=== PATIENT | male | born 2000 | race African-American/Black ===

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

== ENCOUNTER 2019-07-29 20:31 | Emergency (ER) | payer MEDICAID ==
[~2019-07-29] VITALS: Ht 172.7 cm; Wt 104.5 kg
[2019-07-29] MEDS ORDERED: LIDOCAINE 1% 10 ML VIAL INJ ONE (21:00)
[2019-07-29] MEDS ORDERED: POVIDONE-IODINE 10% 15 ML SOLUTION UD TP ONE (21:00)
[2019-07-29] MEDS ORDERED: ACETAMINOPHEN 500 MG TABLET PO ONE (22:00)
[2019-07-29 22:18] VITALS: BP 130/78
== END 2019-07-29 22:15 | disposition home or self-care (01) ==
LOC: EMS 20:32
DX: L05.01 Pilonidal cyst with abscess (principal)
CPT/HCPCS: 10080; 99284; J3490; 10060

== ENCOUNTER 2019-08-01 18:51 | Emergency (ER) | payer MEDICAID ==
[~2019-08-01] VITALS: Ht 175.3 cm; Wt 106.8 kg
[2019-08-01] MEDS ORDERED: [UNRECOGNIZED DRUG - REMARK] PO (19:05)
[2019-08-01 20:33] VITALS: BP 116/70
== END 2019-08-01 20:34 | disposition home or self-care (01) ==
LOC: EMS 18:54
DX: Z48.00 Encounter for change or removal of nonsurgical wound dressing (principal)

== ENCOUNTER 2020-10-01 11:15 | Emergency (ER) | payer MEDICAID ==
[~2020-10-01] VITALS: Ht 170.2 cm; Wt 107.7 kg
[~2020-10-01 11:15] MED LIST: [UNRECOGNIZED DRUG - REMARK] PO
[2020-10-01] MEDS ORDERED: MUPIROCIN CALCIUM 2% 22 GM OINTMENT TP ONE (12:30)
[2020-10-01] MEDS ORDERED: CEPHALEXIN MONOHYDRATE 500 MG CAPSULE PO ONE (12:30)
[2020-10-01] MEDS ORDERED: IBUPROFEN 800 MG TABLET PO ONE (12:30)
[2020-10-01 12:37] VITALS: BP 120/69
== END 2020-10-01 13:07 | disposition home or self-care (01) ==
LOC: EMS 11:22
DX: T25.222A Burn of second degree of left foot, initial encounter (principal); T25.221A Burn of second degree of right foot, initial encounter; L03.116 Cellulitis of left lower limb; X08.8XXA Exposure to other specified smoke, fire and flames, initial encounter; Y93.89 Activity, other specified; Y92.89 Other specified places as the place of occurrence of the external cause; Y99.8 Other external cause status
CPT/HCPCS: 16020; 99283; 99284

== ENCOUNTER 2020-10-06 17:20 | Emergency (ER) | payer MEDICAID ==
[~2020-10-06] VITALS: Ht 170.2 cm; Wt 95.5 kg
[2020-10-06 19:29] VITALS: BP 114/65
== END 2020-10-06 19:30 | disposition home or self-care (01) ==
LOC: EMS 17:20
DX: T25.221A Burn of second degree of right foot, initial encounter (principal); T25.222A Burn of second degree of left foot, initial encounter; X08.8XXA Exposure to other specified smoke, fire and flames, initial encounter; Y93.89 Activity, other specified; Y92.89 Other specified places as the place of occurrence of the external cause; Y99.8 Other external cause status
CPT/HCPCS: 16020; 99282; Z7502